=== PATIENT | female | born 1965 | race Native Hawaiian/Other Pacific Islander ===

== ENCOUNTER 2016-11-13 11:24 | Emergency (ER) | payer OTHER ==
[~2016-11-13] VITALS: Ht 160 cm; Wt 72.6 kg
[2016-11-13 11:36] VITALS: TEMP 98.6
[2016-11-13] MEDS ORDERED: ZANTAC300 MG PO (11:40)
[2016-11-13] MEDS ORDERED: METOPROLOL25 M1 OR (11:40)
[2016-11-13 13:20] VITALS: BP 145/81
== END 2016-11-13 13:20 | disposition home or self-care (01) ==
LOC: ED 11:24
DX: L02.415 Cutaneous abscess of right lower limb (principal); I10 Essential (primary) hypertension
CPT/HCPCS: 96372; 99283; J0696

== ENCOUNTER 2017-01-01 17:13 | Emergency (ER) | payer OTHER ==
[~2017-01-01] VITALS: Ht 160 cm; Wt 72.6 kg
[~2017-01-01 17:13] MED LIST: METOPROLOL25 M1 OR; ZANTAC300 MG PO
[2017-01-01 18:32] LABS: PLATELET COUNT 152 K/uL (152-353)
[2017-01-01 18:42] VITALS: BP 149/81; TEMP 98
[2017-01-01 18:45] LABS: POTASSIUM 3.7 mmol/L (3.6-5.2); SODIUM 130 mmol/L (136-145)
== END 2017-01-01 18:59 | disposition home or self-care (01) ==
LOC: ED 17:13
DX: M54.32 Sciatica, left side (principal); M47.896 Other spondylosis, lumbar region; M12.88 Other specific arthropathies, not elsewhere classified, other specified site
CPT/HCPCS: 36415; 80053; 81000; 85027; 99283

== ENCOUNTER 2017-02-03 01:32 | Emergency (ER) | payer OTHER ==
[~2017-02-03] VITALS: Ht 160 cm; Wt 75.3 kg
[2017-02-03 03:35] VITALS: BP 165/94; TEMP 98
== END 2017-02-03 03:37 | disposition home or self-care (01) ==
LOC: ED 01:32
DX: R07.89 Other chest pain (principal)
CPT/HCPCS: 36415; 82550; 82553; 84484; 93005; 99283

== ENCOUNTER 2017-10-19 20:19 | Emergency (ER) | payer BC ==
[~2017-10-19] VITALS: Ht 160 cm; Wt 72.6 kg
[2017-10-19 20:56] LABS: PLATELET COUNT 175 K/uL (152-353)
[2017-10-19 21:11] LABS: POTASSIUM 3.8 mmol/L (3.6-5.2)
[2017-10-19 21:49] VITALS: BP 146/89; TEMP 98.6
== END 2017-10-19 22:04 | disposition home or self-care (01) ==
LOC: ED 20:19
DX: J06.9 Acute upper respiratory infection, unspecified (principal)
CPT/HCPCS: 36415; 80053; 85027; 99283

== ENCOUNTER 2018-03-13 08:53 | Emergency (ER) | payer BC ==
[~2018-03-13] VITALS: Ht 160 cm; Wt 71.2 kg
[2018-03-13 09:00] VITALS: TEMP 98.2
[2018-03-13 09:41] LABS: PLATELET COUNT 165 K/uL (152-353)
[2018-03-13 09:58] LABS: POTASSIUM 3.6 mmol/L (3.6-5.2)
[2018-03-13 10:54] VITALS: BP 140/78
== END 2018-03-13 10:55 | disposition home or self-care (01) ==
LOC: ED 08:53
PROVIDERS: Family Medicine
DX: M54.89 Other dorsalgia (principal); G89.29 Other chronic pain; I10 Essential (primary) hypertension
CPT/HCPCS: 80053; 85027; 96374; 99284; J3490

== ENCOUNTER 2018-08-28 17:55 | Emergency (ER) | payer BC ==
[~2018-08-28] VITALS: Ht 160 cm; Wt 71.2 kg
[2018-08-28 18:00] VITALS: TEMP 97.3
[2018-08-28 19:18] LABS: PLATELET COUNT 169 K/uL (152-353)
[2018-08-28 19:45] LABS: POTASSIUM 4.1 mmol/L (3.6-5.2)
[2018-08-28 20:25] VITALS: BP 125/67
== END 2018-08-28 20:25 | disposition home or self-care (01) ==
LOC: ED 17:55
PROVIDERS: Emergency Medicine
DX: I10 Essential (primary) hypertension (principal); R51 Headache
CPT/HCPCS: 36415; 80053; 81000; 85027; 99283

== ENCOUNTER 2019-04-01 17:45 | Emergency (ER) | payer BC ==
[~2019-04-01] VITALS: Ht 160 cm; Wt 71.2 kg
[2019-04-01 19:08] LABS: PLATELET COUNT 147 K/uL (152-353)
[2019-04-01 19:24] LABS: POTASSIUM 3.8 mmol/L (3.6-5.2); SODIUM 138 mmol/L (136-145)
[2019-04-01 19:52] VITALS: BP 142/89; TEMP 97.9
== END 2019-04-01 19:52 | disposition home or self-care (01) ==
LOC: ED 17:45
PROVIDERS: Family Medicine
DX: R07.89 Other chest pain (principal); E11.65 Type 2 diabetes mellitus with hyperglycemia
CPT/HCPCS: 36415; 80053; 81000; 82550; 84484; 85027; 93005; 99284

== ENCOUNTER 2019-04-06 18:09 | Emergency (ER) | payer BC ==
[~2019-04-06] VITALS: Ht 160 cm; Wt 71.2 kg
[2019-04-06 18:13] VITALS: TEMP 98.4
[2019-04-06] MEDS ORDERED: LISI20TA11 PO (18:27)
[2019-04-06] MEDS ORDERED: ASPIRIN 81 LOW81 MG PO (18:27)
[2019-04-06] MEDS ORDERED: BRILINTA90 MG PO (18:27)
[2019-04-06] MEDS ORDERED: EUTHYROX25 MCG PO (18:28)
[2019-04-06] MEDS ORDERED: LIPITOR80 MG PO (18:28)
[2019-04-06] MEDS ORDERED: TRAMADOL HYDROC50 MG PO (18:29)
[2019-04-06] MEDS ORDERED: METFORMIN ER1000 MG PO (18:29)
[2019-04-06] MEDS ORDERED: NITROGLYCERIN0.4 MG SL (18:30)
[2019-04-06] MEDS ORDERED: CARV3.12 PO (18:30)
[2019-04-06 19:04] LABS: PLATELET COUNT 180 K/uL (152-353)
[2019-04-06 19:15] LABS: POTASSIUM 3.8 mmol/L (3.6-5.2); SODIUM 139 mmol/L (136-145)
[2019-04-06 20:10] VITALS: BP 124/75
== END 2019-04-06 20:20 | disposition home or self-care (01) ==
LOC: ED 18:09
PROVIDERS: Family Medicine
DX: I20.9 Angina pectoris, unspecified (principal); Z72.0 Tobacco use
CPT/HCPCS: 36415; 80053; 81000; 82550; 84484; 85027; 93005; 99283; 99284

== ENCOUNTER 2020-06-21 14:41 | Observation (INO) | payer BC ==
[~2020-06-21] VITALS: Ht 160 cm; Wt 67.4 kg
[~2020-06-21 14:41] MED LIST changes: +ASPIRIN 81 LOW81 MG PO; +BRILINTA90 MG PO; +CARV3.12 PO; +EUTHYROX25 MCG PO; +LIPITOR80 MG PO; +LISI20TA11 PO; +METFORMIN ER1000 MG PO; +NITROGLYCERIN0.4 MG SL; +TRAMADOL HYDROC50 MG PO
[2020-06-21 14:50] VITALS: BP 149/79; TEMP 98.2
[2020-06-21 15:30] VITALS: BP 141/72
[2020-06-21 15:36] LABS: PLATELET COUNT 177 K/uL (152-353)
[2020-06-21 15:41] LABS: POTASSIUM 3.6 mmol/L (3.6-5.2); SODIUM 138 mmol/L (136-145)
[2020-06-21 15:47] LABS: PARTIAL THROMBOPLASTIN TIME 24.6 SECONDS (24.5-33.6)
[2020-06-21 16:00] VITALS: BP 133/68
[2020-06-21 18:19] VITALS: BP 143/79; TEMP 98.6; Ht 160 cm; Wt 67.4 kg
[2020-06-21] MEDS ORDERED: METF500T PO (18:33)
[2020-06-21] MEDS ORDERED: GABA100C2 PO (18:36)
[2020-06-21] MEDS ORDERED: OMEPRAZOLE DR20 MG PO (18:36)
[2020-06-21 20:00] VITALS: BP 111/67; TEMP 97.8
[2020-06-22] VITALS: BP 123/82; TEMP 97.9
[2020-06-22 04:00] VITALS: BP 107/67; TEMP 97.6
[2020-06-22 08:00] VITALS: BP 121/62; TEMP 98.4
== END 2020-06-22 12:48 | disposition home or self-care (01) ==
LOC: ED 14:41 → MED/SURG 16:39
PROVIDERS: ADMIT Hospitalist
DX: R07.89 Other chest pain (principal); I20.0 Unstable angina; E11.9 Type 2 diabetes mellitus without complications; I10 Essential (primary) hypertension; K21.9 Gastro-esophageal reflux disease without esophagitis
CPT/HCPCS: 36415; 80053; 82550; 82948; 83880; 84484; 85027; 85610; 85730; 93005; 96372; 96374; 96375; 99220; 99284; G0378; J1650; J1815; J2270; J2405

== ENCOUNTER 2021-05-12 19:18 | Emergency (ER) | payer BC ==
[~2021-05-12] VITALS: Ht 160 cm; Wt 67.1 kg
[~2021-05-12 19:18] MED LIST changes: +GABA100C2 PO; +METF500T PO; +OMEPRAZOLE DR20 MG PO
[2021-05-12 20:40] VITALS: BP 131/76; TEMP 97.5
== END 2021-05-12 20:40 | disposition home or self-care (01) ==
LOC: ED 19:18
DX: M54.5 Low back pain (principal)
CPT/HCPCS: 96372; 99283; J2360

== ENCOUNTER 2022-03-23 23:55 | Emergency (ER) | payer BC ==
[~2022-03-23] VITALS: Ht 160 cm; Wt 67.1 kg
[2022-03-24 01:10] VITALS: BP 130/84; TEMP 98.1
== END 2022-03-24 01:15 | disposition home or self-care (01) ==
LOC: ED 23:55
DX: M70.61 Trochanteric bursitis, right hip (principal); M54.59 Other low back pain; M53.3 Sacrococcygeal disorders, not elsewhere classified
CPT/HCPCS: 96372; 99283; J2920

== ENCOUNTER 2022-04-21 23:53 | Emergency (ER) | payer BC ==
[~2022-04-21] VITALS: Ht 160 cm; Wt 64.9 kg
[2022-04-22 00:34] LABS: POTASSIUM 3.4 mmol/L (3.6-5.2)
[2022-04-22 00:49] LABS: PLATELET COUNT 158 K/uL (152-353)
[2022-04-22 02:20] VITALS: BP 137/77; TEMP 98.4
== END 2022-04-22 02:20 | disposition short-term general hospital (02) ==
LOC: ED 23:53
PROVIDERS: Emergency Medicine
DX: I21.4 Non-ST elevation (NSTEMI) myocardial infarction (principal); I10 Essential (primary) hypertension; F17.210 Nicotine dependence, cigarettes, uncomplicated; Z11.52 Encounter for screening for COVID-19
CPT/HCPCS: 80053; 83880; 84443; 84484; 85027; 85730; 87635; 93005; 96372; 96375; 99284; J1650; J2270; J2405; J3490; U0003